=== PATIENT | male | born 1970 | race Caucasian/White ===

== ENCOUNTER 2024-09-16 22:21 | Emergency (ER) | payer BC, SELFPAY ==
[2024-09-16 22:23] VITALS: BP 172/108
--- NOTE | 2024-09-16 23:21 | ED.GENMED ---
History of Present Illness
General
Chief Complaint: Extremity Pain (non-traumatic)
Time Seen by Provider: 09/16/24 23:21
History of Present Illness
History of Present Illness:
TIME OF INITIAL ENCOUNTER: 11:25 PM
HPI: Patient presents with neck pain. He has pain that radiates into his left second and third digits. He feels this is similar to prior nerve related kind of pain. He localizes the pain to the left thoracic region. There has been no trauma.
His primary called in Percocet and steroids. The patient took 1 Percocet, however the steroids are not ready at his pharmacy yet.
EXAM:
GENERAL: Well appearing but appears uncomfortable
HEENT: Moist oral mucosa
NEUROLOGIC: Excellent strength all extremities, no obvious coordination deficits, however the patient reports some decreased motor strength in a radial distribution of the left upper extremity toward is not clearly apparent on exam
NECK: Some vague tenderness to palpation to the left paraspinal musculature as well as into the left trapezius region
PSYCHIATRIC: Appropriate mental status, normal insight and judgement
EXTREMITIES: Nontender, no edema, moves all extremities equally
SKIN: No rash, no lesions
NUMBER AND COMPLEXITY OF PROBLEMS ADDRESSED AT THE ENCOUNTER
� Chronic conditions affecting care: Has had surgery for low back pain, hyperlipidemia
� Acute Exacerbation and/or Progression of Chronic Illness: This is an acute problem
� Differential Diagnosis includes: Cervical radiculopathy, muscle strain, muscle spasm
AMOUNT AND/OR COMPLEXITY OF DATA TO BE REVIEWED AND ANALYZED
� I performed an independent evaluation of and my interpretation is:
EKG:
CT:
X-rays:
Laboratory Studies:
Other:
� Review of other/old records: No old records available for review.
� Clinical information was obtained by an independent historian: I spoke to at bedside
� Prescriptions/Medications Considered but not given:
� Further testing considered but not performed:
RISK OF COMPLICATIONS AND/OR MORBIDITY OR MORTALITY OF PATIENT MANAGEMENT
� Social determinants of health affecting care: Lives at home
� Discussion with other providers:
� Escalation of care including admission/observation vs risk of discharge considered: The patient already took Percocet prior to arrival but the steroids were not ready. Will give steroids here, IM Toradol, and a dose of
gabapentin. I suspect that he has a cervical radiculopathy.
ANY OTHER UPDATES:
12:30 PM: The pain patient appears much more comfortable and is resting. He is to follow-up with curriculum specialist.
Phy Exam
Physical Exam
Physical Exam:
See HPI
Course
Orders/Labs/Results
Orders:
Orders
09/16/24 23:38
Gabapentin [Neurontin] 300 mg PO NOW STA
Ketorolac [Toradol] 30 mg IM NOW STA
Prednisone [Deltasone] 50 mg PO NOW STA
Vital Signs
Initial and Last Documented VS:
Initial Vital Signs
Temp Pulse Resp BP Pulse Ox
36.5 C 74 16 172/108 99
09/16/24 22:23 09/16/24 22:23 09/16/24 22:23 09/16/24 22:23 09/16/24 22:23
Last Documented Vital Signs
Temp Pulse Resp BP Pulse Ox
36.5 C 64 18 139/95 96
09/16/24 22:23 09/17/24 00:29 09/17/24 00:29 09/17/24 00:29 09/17/24 00:29
*Critical Care Note
Total Time (30-74mins, 75-104mins- exclusive of procedures): Not Applicable
ED Attending Note
-
Portions of this chart may have been created with voice recognition software.� Occasional wrong word or��sound alike� substitutions may have occurred due to the inherent limitations of voice recognition software.
Discharge Plan
Departure
Patient Disposition: Home (Routine Discharge)
Date of Disposition: 09/17/24
Time of Disposition: 00:29
Patient with high blood pressure during this ER visit?: Yes
Discharge Problem:
Cervical radiculopathy
Prescriptions:
New
gabapentin 300 mg capsule
300 mg PO TID PRN (Reason: pain) Qty: 21 0RF
Referrals:
Carlos Valle MD [Active] - Next open appointment
Alex Robins DO [Family Provider] -
Activity Restrictions/Additional Instructions:
I recommend to take either the gabapentin or the Percocet and not to take 2 at the same time. If you take Percocet, I recommend you take something like MiraLAX to prevent constipation. I have given you the contact information for Dr. Valle, spine
specialist at [facility]. Next dose of steroids tomorrow.
Interventions
Interventions:
*Risk Screen - Suicide Last Done: 09/16/24 23:38
*General Assessment Last Done: 09/16/24 23:38
*Neglect/Abuse Screening Last Done: 09/16/24 23:38
*ED COVID-19 Vaccine History Last Done: 09/16/24 22:23
*Nursing Disposition Last Done: 09/17/24 00:51
ED-Skin Assessment Last Done: 09/16/24 23:53
ED-Peripheral Vascular Assessment Last Done: 09/16/24 23:53
ED-Musculoskeletal Assessment Last Done: 09/16/24 23:53
Discharge Date and Time
Discharge Date/Time: 09/17/24 00:54
Print Language: ARABIC
[2024-09-16 23:37] VITALS: BMI 30.7
[2024-09-16 23:39] VITALS: BP 141/99
[2024-09-16] MEDS: NEURONTIN 300 MG PO (23:46)
[2024-09-16] MEDS: DELTASONE 50 MG PO (23:46)
[2024-09-16] MEDS: TORADOL 30 MG IM (23:48)
[2024-09-17 00:29] VITALS: BP 139/95
== END 2024-09-17 00:54 | disposition home or self-care (01) ==
LOC: EMR 22:21
PROVIDERS: EMERGENCY PHYSICIAN Emergency Medicine; FAMILY PHYSICIAN Family Medicine
DX: M54.12 Radiculopathy, cervical region (principal)
CPT/HCPCS: 99284; 96372

== ENCOUNTER 2024-09-27 18:52 | Emergency (ER) | payer BC, SELFPAY ==
[2024-09-27 18:54] VITALS: BP 148/97
[2024-09-27 23:09] VITALS: BP 125/87
[2024-09-27 23:10] VITALS: BMI 30.8
[2024-09-27 23:50] LABS: % Basophils 0.4 % (0-2); % Eosinophils 2.6 % (0-6); % Immature Granulocytes 0.6 % (0-0.5); % Lymphocytes 11.1 % (20.5-51.1); % Monocytes 9.3 % (1.7-9.3); Absolute Eosinophils 0.2 10^3/uL (0-0.7); Absolute Immature Granulocytes 0.1 10^3/uL (0-0.05); Absolute Lymphocytes 0.9 10^3/uL (1.2-3.4); Absolute Monocytes 0.8 10^3/uL (0.1-0.6); Absolute Neutrophils 6.2 10^3/uL (1.4-6.5); Hematocrit 44.6 % (39.0-52.0); Hemoglobin 15.2 g/dL (13.0-18.0); Mean Corp Hgb Conc. 34.1 g/dL (33.0-37.0); Mean Corpuscular Hgb 30.2 pg (27.0-31.0); Mean Corpuscular Volume 88.7 fL (80.0-94.0); Mean Platelet Volume 9.7 fL (7.4-10.4); Nucleated Red Blood Cells % 0 % (-); Platelet Count 262 10^3/uL (130-400); Red Blood Cell Count 5.03 10^6/uL (4.70-6.10); White Blood Cell Count 8.1 10^3/uL (4.8-10.8)
[2024-09-28] VITALS: BP 128/87
[2024-09-28 00:03] LABS: ALT (SGPT) 31 U/L (0-50); AST (SGOT) 30 U/L (17-59); Albumin 3.8 g/dl (3.5-5.0); Alkaline Phosphatase 76 U/L (38-126); Blood Urea Nitrogen 22 mg/dl (9-20); Calcium 8.9 mg/dl (8.4-10.2); Carbon Dioxide 25 mmol/L (22-30); Chloride 104 mmol/L (98-107); Estimated Creatinine Clearance 94 ml/min; Glucose 112 mg/dl (70-99); Potassium 3.9 mmol/L (3.5-5.1); Sodium 137 mmol/L (135-145); Total Bilirubin 0.7 mg/dl (0.2-1.3); Total Protein 6.4 g/dl (6.3-8.2); eGFR > 60.00
[2024-09-28 00:08] LABS: COVID-19 Antigen Negative (Negative)
--- NOTE | 2024-09-28 01:37 | ED.MUSCINJ ---
HPI-Injury
General
Chief Complaint: Extremity Pain (non-traumatic)
Source: patient and physician (Dr. Torey Welch, pain management)
Exam Limitations: none
Time Seen by Provider: 09/28/24 00:59
History of Present Illness-Injury
Initial Injury comments:
Patient with acute on chronic left arm radicular pain from multilevel disc herniations. Has had outpatient epidural 10 days ago which did not take. Has been on oxycodone metaxalone and gabapentin with minimal relief.
Phy Exam
General Physical Exam
General Presentation: well appearing and moderate distress
General age: appears stated age
General Skin: warm
General Habitus: normal
General Mental: alert
General Hydration: appears well hydrated
ENT Exam
ENT Exam: EOMI, pharynx normal, neck supple and normocephalic
Eye Exam
Eye Exam: PERRL, cornea clear and conjunctiva normal
Cardiovascular Exam
Cardiovascular Exam: regular rate/rhythm and no edema
Pulmonary Exam
Pulmonary Exam: lungs clear and no respiratory distress
Gastrointestinal Exam
Gastrointestinal Exam: normal bowel sounds, non tender, soft, no organomegaly, no pulsatile mass and non distended
Neurological Exam
Neurological Exam: alert, oriented x3, no motor deficits and speech normal
Musculoskeletal Exam
Musculoskeletal Exam: other (Pain with passive movement)
Skin Exam
Skin Exam: normal color and warm/dry
Psychiatric Exam
Psychiatric Exam: normal mood/affect
Injury Course
Orders/Labs/Results
Orders:
Orders
09/27/24 23:36
COVID-19 Antigen Urgent
Source: Nasal Swab
Complete Blood Count/With Diff Urgent
Comprehensive Metabolic Panel Urgent
Influenza A+B Rapid Molecular Urgent
ITALO Source: Nasal Swab
Specimen Description:
09/28/24 01:35
CT Cervical Spine W/o Iv Contr Urgent
Comment:
Reason For Exam: pain with radiculopathy. from pain mgmt
Dexamethasone Sod Phosphate [Decadron] 10 mg IV NOW STA
HYDROmorphone [Dilaudid] 1 mg IV NOW STA
Ondansetron Injectable [Zofran] 4 mg IV NOW STA
Abnormal Lab Results
09/27/24
23:36
Abs Immat Gran (auto) 0.1 H 10^3/uL
(0-0.05)
Absolute Lymphs (auto) 0.9 L 10^3/uL
(1.2-3.4)
Absolute Monos (auto) 0.8 H 10^3/uL
(0.1-0.6)
Immature Gran % 0.6 H %
(0-0.5)
Neutrophils % 76.0 H %
(42.2-75.2)
Lymphocytes % 11.1 L %
(20.5-51.1)
BUN 22 H mg/dl
(9-20)
Glucose 112 H mg/dl
(70-99)
09/27/24 23:36
09/27/24 23:36
*Critical Care Note
Total Time (30-74mins, 75-104mins- exclusive of procedures): Not Applicable
Update Note
Update Note:
Spoke with Dr. Torey Welch, pain management. He saw patient 10 days ago and did a cervical epidural. He did not think it took since patient still had pain. He had an MRI performed that showed multi level disc herniation. He is due to go back to
his office this for another epidural. He recommended that we get a CAT scan of the cervical spine. He recommends Dilaudid and Decadron with discharge if possible.
CT cervical spine without contrast
IMPRESSION:
No acute fracture or malalignment. Mild cervical spondylosis. Moderate multilevel facet arthropathy.
ED Attending Note
-
Portions of this chart may have been created with voice recognition software.� Occasional wrong word or��sound alike� substitutions may have occurred due to the inherent limitations of voice recognition software.
Discharge Plan
Departure
Patient Disposition: Home (Routine Discharge)
Date of Disposition: 09/28/24
Time of Disposition: 05:27
Patient with high blood pressure during this ER visit?: Yes
Condition: Good
Discharge Problem:
Cervical pain, Radiculopathy
Prescriptions:
New
oxycodone-acetaminophen [Percocet] 5-325 mg tablet
1 tab PO Q6HPRN PRN (Reason: pain) Qty: 10 0RF
No Action
gabapentin 300 mg capsule
300 mg PO TID PRN (Reason: pain) Qty: 21 0RF
Referrals:
Alex Robins, DO [Family Provider] -
Activity Restrictions/Additional Instructions:
Please keep your appointment with your pain management physician scheduled for this .
It was a pleasure meeting you and taking part in your care. We hope for your continued healing and wellness.
Please read discharge instructions in their entirety. However, they are for general education and may not describe your exact diagnosis at discharge. Information on your ER visit and medical conditions were discussed with you along with appropriate
follow up information...
If indicated, please take your medications as instructed and indicated on discharge paperwork.
Please schedule a follow up appointment as directed. Call to schedule an appointment
Please return to the emergency department with ANY change in, persisting, or worsening of symptoms. If any of your symptoms do not improve, or persist, or become more severe within 6-12 hours, please return to the emergency department for further
care.
Please return to the emergency department if you develop a headache, neck pain/stiffness, fever greater than 100.4F, chest pain, shortness of breath, persistent nausea, vomiting, slurred speech, difficulty walking, numbness/tingling, weakness, signs
of infection or any other symptoms that are worrisome to you.
If you have any questions or concerns please do not hesitate to call the Hospital at or E-mail me directly at [email or web address]
Interventions
Interventions:
*Risk Screen - Suicide Last Done: 09/27/24 18:54
*General Assessment Last Done: 09/27/24 18:54
*Neglect/Abuse Screening Last Done: 09/27/24 18:54
ED- Fall Risk Assessment Last Done: 09/27/24 23:10
*ED COVID-19 Vaccine History Last Done: 09/27/24 23:10
ED-Skin Assessment Last Done: 09/27/24 23:10
ED-Peripheral Vascular Assessment Last Done: 09/27/24 23:10
ED-Musculoskeletal Assessment Last Done: 09/27/24 23:10
Discharge Date and Time
Print Language: [place]
[2024-09-28] MEDS: DECADRON 10 MG IV (01:41)
[2024-09-28] MEDS: ZOFRAN 4 MG IV (01:41)
[2024-09-28] MEDS: DILAUDID 1 MG IV (01:42)
[2024-09-28 02:00] VITALS: BP 124/90
[2024-09-28 03:00] VITALS: BP 126/83
[2024-09-28 04:00] VITALS: BP 123/87
[2024-09-28 05:00] VITALS: BP 130/102
[2024-09-28 06:00] VITALS: BP 133/84
== END 2024-09-28 06:34 | disposition home or self-care (01) ==
LOC: EMR 18:52
PROVIDERS: EMERGENCY PHYSICIAN Student in an Organized Health Care Education/Training Program; FAMILY PHYSICIAN Family Medicine
DX: M47.22 Other spondylosis with radiculopathy, cervical region (principal); M54.2 Cervicalgia; M79.602 Pain in left arm; M50.10 Cervical disc disorder with radiculopathy, unspecified cervical region; Z11.52 Encounter for screening for COVID-19; R03.0 Elevated blood-pressure reading, without diagnosis of hypertension
CPT/HCPCS: 99284; 96374; 96375 ×2; 72125; 80053; 85025; 87502; 87811